=== PATIENT | male | born 1940 | race Two or more races ===

== ENCOUNTER 2019-08-22 21:04 | Emergency (ER) | payer OTHER ==
[~2019-08-22] VITALS: Ht 175.3 cm; Wt 65.8 kg
[~2019-08-22 21:04] MED LIST: DICLOFENAC SODI50 MG PO
[2019-08-23] MEDS ORDERED: ZYNCOF 20-400120 ML PO (00:52)
[2019-08-23] MEDS ORDERED: OSEL75CA PO (00:52)
== END 2019-08-23 00:56 | disposition home or self-care (01) ==
LOC: ER 21:04
DX: J11.1 Influenza due to unidentified influenza virus with other respiratory manifestations (principal)

== ENCOUNTER 2020-02-22 11:39 | Emergency (ER) | payer OTHER ==
[~2020-02-22] VITALS: Ht 175.3 cm; Wt 65.8 kg
[~2020-02-22 11:39] MED LIST changes: +OSEL75CA PO; +ZYNCOF 20-400120 ML PO
== END 2020-02-22 18:00 | disposition home or self-care (01) ==
LOC: ER 11:39
DX: N45.1 Epididymitis (principal); N50.812 Left testicular pain; R53.81 Other malaise

== ENCOUNTER 2022-08-26 15:54 | Emergency (ER) | payer OTHER ==
[~2022-08-26] VITALS: Ht 167.6 cm; Wt 72.1 kg
== END 2022-08-26 20:14 | disposition home or self-care (01) ==
LOC: ER 15:54
DX: S82.62XA Displaced fracture of lateral malleolus of left fibula, initial encounter for closed fracture (principal); W18.30XA Fall on same level, unspecified, initial encounter; Y93.9 Activity, unspecified; Y92.413 State road as the place of occurrence of the external cause

== ENCOUNTER 2025-01-28 17:10 | Emergency (ER) | payer OTHER ==
[~2025-01-28] VITALS: Ht 175.3 cm; Wt 65.8 kg
== END 2025-01-28 20:56 | disposition home or self-care (01) ==
LOC: ER 17:10
DX: T16.1XXA Foreign body in right ear, initial encounter (principal)